=== PATIENT | female | born 1945 | race Caucasian/White ===

== ENCOUNTER 2017-01-16 14:19 | Outpatient (CLI) | payer OTHER ==
[2015-05-21 21:39] VITALS: BP 132/68
[2017-01-16 15:16] LABS: eGFR (African) > 60; eGFR (Non-African) > 60
== END 2017-01-16 14:20 ==
LOC: LAB 14:19
PROVIDERS: ATTEND Family Medicine
DX: E78.00 Pure hypercholesterolemia, unspecified (principal); I10 Essential (primary) hypertension; R73.9 Hyperglycemia, unspecified; E03.9 Hypothyroidism, unspecified
CPT/HCPCS: 36415; 80053; 80061; 83036; 84443

== ENCOUNTER 2018-02-27 14:20 | Outpatient (CLI) | payer OTHER ==
[2015-05-21 21:39] VITALS: BP 132/68
[2018-02-27 15:01] LABS: eGFR (African) > 60; eGFR (Non-African) > 60
== END 2018-02-27 14:23 ==
LOC: LAB 14:20
PROVIDERS: ATTEND Family Medicine
DX: I10 Essential (primary) hypertension (principal); E16.2 Hypoglycemia, unspecified; E03.9 Hypothyroidism, unspecified
CPT/HCPCS: 36415; 80053; 80061; 83036; 84443

== ENCOUNTER 2019-03-04 14:09 | Outpatient (CLI) | payer OTHER ==
[2015-05-21 21:39] VITALS: BP 132/68
[2019-03-04 16:06] LABS: eGFR (Non-African) > 60
[2019-03-04 16:07] LABS: HDL 44 mg/dL (>40); TSH < 0.010 mIU/l (0.465-4.685)
== END 2019-03-04 14:11 ==
LOC: LAB 14:09
PROVIDERS: ATTEND Family Medicine
DX: I10 Essential (primary) hypertension (principal)
CPT/HCPCS: 36415; 80053; 80061; 84443

== ENCOUNTER 2019-05-27 13:36 | Outpatient (CLI) | payer OTHER ==
[2015-05-21 21:39] VITALS: BP 132/68
== END 2019-05-27 13:38 ==
LOC: LAB 13:36
PROVIDERS: ATTEND Family Medicine
DX: E03.9 Hypothyroidism, unspecified (principal)
CPT/HCPCS: 36415; 84443